=== PATIENT | female | born 2000 | race Caucasian/White ===

== ENCOUNTER 2024-06-10 04:45 | Outpatient (CLI) | payer OTHER ==
[~2024-06-10] VITALS: Ht 175.3 cm; Wt 68.2 kg
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
[2024-06-10] MEDS ORDERED: LR 1,000 ML IV PRN (05:15)
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
[2024-06-10 05:50] VITALS: BP 121/72; PULSE 70; TEMP 97.9
--- NOTE | 2024-06-10 05:55 | NUR ---
PT GIVEN WRITTEN AND VERBAL DISCHARGE INSTRUCTIONS. PT GIVEN INFORMATION ON DISCOMFORTS. PT VERBALIZED UNDERSTANDING. PT LEFT UNIT AMB OUT.
== END 2024-06-10 05:55 | disposition home or self-care (01) ==
LOC: LDRO 04:45
DX: O9A.213 Injury, poisoning and certain other consequences of external causes complicating pregnancy, third trimester (principal); Z3A.30 30 weeks gestation of pregnancy